=== PATIENT | male | born 1950 | race Two or more races ===

== ENCOUNTER 2018-09-27 11:17 | Outpatient (CLI) | payer OTHER | END 2018-09-27 11:22 | disposition home or self-care (01) | LOC: LAB 11:17 | DX: D68.8 Other specified coagulation defects (principal); E78.2 Mixed hyperlipidemia; N39.0 Urinary tract infection, site not specified; R07.89 Other chest pain; I10 Essential (primary) hypertension ==

== ENCOUNTER 2019-02-11 08:19 | Emergency (ER) | payer OTHER ==
[~2019-02-11] VITALS: Ht 172.7 cm; Wt 77.1 kg
[2019-02-11] MEDS ORDERED: NORVASC5 MG PO (08:56)
[2019-02-11] MEDS ORDERED: AVAPRO300 MG PO (08:56)
[2019-02-11] MEDS ORDERED: LIPITOR20 MG PO (08:57)
[2019-02-11] MEDS ORDERED: ASPIR 8181 MG PO (08:57)
[2019-02-12] MEDS ORDERED: CLOPIDOGREL BIS75 MG PO (11:00)
== END 2019-02-12 11:11 | disposition home or self-care (01) ==
LOC: ER 08:19
DX: G45.8 Other transient cerebral ischemic attacks and related syndromes (principal); I10 Essential (primary) hypertension; E78.49 Other hyperlipidemia
CPT/HCPCS: 70551

== ENCOUNTER 2019-10-30 10:26 | Outpatient (CLI) | payer OTHER ==
[~2019-10-30 10:26] MED LIST: ASPIR 8181 MG PO; AVAPRO300 MG PO; CLOPIDOGREL BIS75 MG PO; LIPITOR20 MG PO; NORVASC5 MG PO
== END 2019-10-30 10:36 | disposition home or self-care (01) ==
LOC: MRI 10:26
DX: M25.511 Pain in right shoulder (principal); M25.512 Pain in left shoulder; M75.122 Complete rotator cuff tear or rupture of left shoulder, not specified as traumatic; M75.121 Complete rotator cuff tear or rupture of right shoulder, not specified as traumatic
CPT/HCPCS: 73221

== ENCOUNTER 2019-11-02 09:05 | Outpatient (CLI) | payer OTHER | END 2019-11-02 09:10 | disposition home or self-care (01) | LOC: RAD 09:05 | DX: R07.89 Other chest pain (principal) ==

== ENCOUNTER 2022-03-17 08:30 | Inpatient (IN) | payer OTHER ==
[2022-03-23] MEDS ORDERED: IRBESARTAN-HCT1 EAC1 (08:49)
[2022-03-23] MEDS ORDERED: HYDROCHLOROTHIA25 MG (08:49)
== END 2022-03-24 17:34 | disposition home or self-care (01) | DRG 330 ==
LOC: SURH 03-20 05:49 → O/R 03-20 05:49 → SURG 03-20 08:30 → SURH 03-20 12:18
PROVIDERS: ADMIT Surgery; ATTEND Surgery
PROC: 0D1N4Z4 Bypass Sigmoid Colon to Cutaneous, Percutaneous Endoscopic Approach (ICD-10-PCS; principal; 2022-03-20 10:15)
DX: K62.89 Other specified diseases of anus and rectum (principal); K62.5 Hemorrhage of anus and rectum; N41.2 Abscess of prostate; K62.7 Radiation proctitis; I10 Essential (primary) hypertension; Z93.3 Colostomy status; Z20.822 Contact with and (suspected) exposure to COVID-19

== ENCOUNTER 2023-06-09 07:46 | Outpatient (CLI) | payer OTHER ==
[~2023-06-09 07:46] MED LIST changes: +HYDROCHLOROTHIA25 MG; +IRBESARTAN-HCT1 EAC1
== END 2023-06-09 07:55 | disposition home or self-care (01) ==
LOC: TOM 07:46
PROVIDERS: ATTEND Surgery
DX: K62.89 Other specified diseases of anus and rectum (principal); K62.7 Radiation proctitis; K62.5 Hemorrhage of anus and rectum; N41.2 Abscess of prostate; Z93.3 Colostomy status
CPT/HCPCS: 74177; Q9965

== ENCOUNTER → 2024-07-26 11:42 | Outpatient (CLI) | payer OTHER ==
[~2024-07-26 11:42] MED LIST changes: +CELECOXIB200 MG PO; +INTESTINEX680 M1 PO; +MUPIROCIN15 GM TOP; +NEURONTIN300 MG PO
== END | disposition home or self-care (01) ==
LOC: NUCLEAR 11:42
PROVIDERS: ATTEND Psychiatry & Neurology Clinical Neurophysiology
DX: G31.84 Mild cognitive impairment of uncertain or unknown etiology (principal)
CPT/HCPCS: 78803; A9557

== ENCOUNTER 2024-09-14 10:47 | Outpatient (CLI) | payer OTHER | END 2024-09-14 10:51 | disposition home or self-care (01) | LOC: RAD 10:47 | PROVIDERS: ATTEND Family Medicine | DX: J32.9 Chronic sinusitis, unspecified (principal); J44.9 Chronic obstructive pulmonary disease, unspecified; I70.90 Unspecified atherosclerosis ==

== ENCOUNTER 2025-06-19 07:49 | Outpatient (CLI) | payer OTHER | END 2025-06-19 07:54 | disposition home or self-care (01) | LOC: RAD 07:49 | PROVIDERS: ATTEND Family Medicine | DX: R31.1 Benign essential microscopic hematuria (principal); M25.561 Pain in right knee ==